=== PATIENT | female | born 1990 | race African-American/Black ===

== ENCOUNTER 2017-08-21 12:10 | Emergency (ER) | payer SELFPAY ==
[~2017-08-21] VITALS: Ht 165.1 cm; Wt 52.6 kg
[~2017-08-21 12:10] MED LIST: FLEXERIL5 MG PO; MOBIC7.5 MG PO; NO HOME MEDS; birth control
[2017-08-21] MEDS ORDERED: KEFLEX500 MG PO (16:04)
[2017-08-21 16:20] VITALS: BP 130/96
== END 2017-08-21 16:21 | disposition home or self-care (01) ==
LOC: EME 12:10
PROC: 0H9UXZZ (ICD-10-PCS; principal; 2017-08-21)
DX: N61.1 Abscess of the breast and nipple (principal); R00.0 Tachycardia, unspecified; R94.31 Abnormal electrocardiogram [ECG] [EKG]; F17.200 Nicotine dependence, unspecified, uncomplicated; Z88.6 Allergy status to analgesic agent
CPT/HCPCS: 93005; 99281; 99283